=== PATIENT | male | born 1970 | race Caucasian/White ===

== ENCOUNTER 2017-07-26 05:11 | Emergency (ER) | payer OTHER ==
[2017-07-26] MEDS: ASPIRIN 325 MG TAB PO (09:00)
[2017-07-26 09:38] LABS: ADD MAN DIFF? NO
[2017-07-26 09:40] LABS: BASOPHILS % 0.4 % (0.0-2.0); EOSINOPHILS % 0.2 % (0.0-7.0); HEMATOCRIT 40.8 % (42.0-52.0); LYMPHOCYTES # 1.6 10^3/ul (0.8-2.9); MEAN CORPUSCULAR HEMOGLOBIN 29.2 pg (29.0-33.0); MEAN CORPUSCULAR HGB CONC 34.3 g/dl (32.0-37.0); MEAN PLATELET VOLUME 10.9 fl (7.4-10.4); MONOCYTE # 0.4 10^3/ul (0.3-0.9); MONOCYTES % 9.1 % (0.0-11.0); NEUTROPHIL # 2.5 10^3/ul (1.6-7.5); NEUTROPHILS % 55.1 % (39.0-77.0); PLATELET COUNT 183 10^3/UL (140-415); RED CELL DISTRIBUTION WIDTH 12.2 % (11.5-14.5)
[2017-07-26 09:40] LABS: WHITE BLOOD COUNT 4.5 10^3/ul (4.8-10.8)
[2017-07-26 10:00] LABS: ALANINE AMINOTRANSFERASE 105 IU/L (13-69); ALBUMIN 4.4 g/dl (3.3-4.9); ALBUMIN/GLOBULIN RATIO 1.15; ALKALINE PHOSPHATASE 179 IU/L (42-121); ANION GAP 16 (8-16); ASPARTATE AMINO TRANSFERASE 67 IU/L (15-46); BILIRUBIN,INDIRECT 0.3 mg/dl (0-1.1); BILIRUBIN,TOTAL 0.3 mg/dl (0.2-1.3); BLOOD UREA NITROGEN 9 mg/dl (7-20); CALCIUM 8.9 mg/dl (8.4-10.2); CARBON DIOXIDE 29 mmol/L (21-31); CHLORIDE 105 mmol/L (97-110); CREATINE KINASE 198 IU/L (23-200); CREATININE 0.93 mg/dl (0.61-1.24); GLUCOSE 116 mg/dl (70-220); POTASSIUM 4.1 mmol/L (3.5-5.1); SODIUM 146 mmol/L (135-144); TOTAL PROTEIN 8.2 g/dl (6.1-8.1)
[2017-07-26 10:11] LABS: INR 0.88; PT RATIO 0.9
[2017-07-26 10:12] LABS: B-TYPE NATRIURETIC PEPTIDE 31 PG/ML (0-125); CK INDEX 0.3
[2017-07-26 10:13] LABS: CK-MB 0.69 ng/ml (0.0-2.4); TROPONIN-I < 0.012 ng/ml (0.00-0.12)
[2017-07-26] MEDS: SOD CHLORIDE 0.9% 1,000 ML IV (10:44)
[2017-07-26] MEDS: ONDANSETRON 4 MG INJ IV (10:44)
[2017-07-26] MEDS: KETOROLAC 30 MG INJ IV (10:50)
== END 2017-07-26 12:08 | disposition home or self-care (01) ==
LOC: E/R 05:11
DX: M94.0 Chondrocostal junction syndrome [Tietze] (principal)
CPT/HCPCS: 80053; 82550; 82553; 83880; 84484; 85025; 85610; 85730; 93005; 96374; 99284-25

== ENCOUNTER 2017-10-02 09:01 | Day surgery (SDC) | payer OTHER | END 2017-10-02 12:09 | disposition home or self-care (01) | LOC: GIL 09:01 | DX: K29.50 Unspecified chronic gastritis without bleeding (principal); K44.9 Diaphragmatic hernia without obstruction or gangrene; K21.9 Gastro-esophageal reflux disease without esophagitis; K64.8 Other hemorrhoids; I10 Essential (primary) hypertension | CPT/HCPCS: 43239; 88305; 88312 ==